=== PATIENT | male | born 1975 | race Caucasian/White ===

== ENCOUNTER 2018-04-08 06:46 | Observation (INO) | payer OTHER ==
[~2018-04-08] VITALS: Ht 175.3 cm; Wt 69.0 kg
[2018-04-08] MEDS ORDERED: TRAZ100 PO (06:53)
[2018-04-08] MEDS ORDERED: BUPR100 (06:54)
[2018-04-08] MEDS ORDERED: MIRT30 PO (06:54)
[2018-04-08 08:01] LABS: BASOPHILS ABSOLUTE AUTO 0.07 K/mm3 (0.00-0.23); BASOPHILS PERCENT AUTO 1 % (0-2); EOSINOPHILS ABSOLUTE AUTO 0.21 K/mm3 (0.00-0.68); EOSINOPHILS PERCENT AUTO 2 % (0-6); Hematocrit 43.4 % (37.0-53.0); Hemoglobin 14.2 g/dL (13.5-17.5); IMMATURE GRAN ABSOLUTE AUTO 0.02 K/mm3 (0.00-0.10); IMMATURE GRAN PERCENT AUTO 0 % (0-1); LYMPHOCYTES ABSOLUTE AUTO 1.35 K/mm3 (0.84-5.20); LYMPHOCYTES PERCENT AUTO 14 % (21-46); MONOCYTES ABSOLUTE AUTO 0.61 K/mm3 (0.16-1.47); MONOCYTES PERCENT AUTO 6 % (4-13); Mean Corpuscular HGB 29.3 pg (26.0-34.0); Mean Corpuscular HGB Conc 32.7 g/dL (31.5-36.5); Mean Corpuscular Volume 90 fL (80-100); Mean Platelet Volume 10.2 fL (9.1-12.4); NEUTROPHILS ABSOLUTE AUTO 7.52 K/mm3 (1.96-9.15); NEUTROPHILS PERCENT AUTO 77 % (41-73); Platelet Count 280 K/mm3 (150-400); RDW Coefficient Variation 12.9 % (11.7-14.2); RDW Standard Deviation 42.5 fL (35.1-46.3); Red Blood Cell Count 4.84 M/mm3 (4.30-5.90); White Blood Cell Count 9.78 K/mm3 (4.00-11.30)
[2018-04-08 08:22] LABS: Alanine Aminotransfer (ALT/SGP 23 U/L (12-78); Albumin, Blood 3.9 g/dL (3.4-5.0); Albumin/Globulin Ratio 1.1 (0.8-1.8); Alk Phos 132 U/L (50-136); Anion Gap 11 mmol/L (6-16); Aspartate Aminotrans (AST/SGOT 21 U/L (12-37); Bilirubin, Total 0.3 mg/dL (0.1-1.0); Blood Urea Nitrogen 17 mg/dL (8-24); Bun/Creatinine Ratio 18.5 (12.0-20.0); CO2, Blood 25 mmol/L (21-32); Calcium, Blood 8.4 mg/dL (8.5-10.1); Chloride, Blood 108 mmol/L (98-108); Creatinine, Blood 0.92 mg/dL (0.60-1.20); Ethanol (Alcohol), Blood, Med <3 mg/dL; Globulin, Blood 3.4 g/dL (2.2-4.0); Glomerular Filtration Rate >60 (60-); Glucose, Blood 82 mg/dL (70-99); Potassium, Blood 3.8 mmol/L (3.5-5.5); Salicylate <1.7 mg/dL (2.8-20.0); Sodium, Blood 144 mmol/L (136-145); Total Protein, Blood 7.3 g/dL (6.4-8.2)
[2018-04-08 08:26] LABS: Thyroid Stimulating Hormone 0.717 uIU/mL (0.360-4.800)
[2018-04-08 08:28] LABS: Acetaminophen, Random <2.0 ug/mL (10.0-30.0)
[2018-04-08 09:19] LABS: Source, Urine Clean Catch
[2018-04-08 09:23] LABS: Bilirubin, Urine Neg (Neg); Blood, Urine 1+ (Neg); Glucose Qualitative, Urine Neg (Neg); Ketones, Urine 1+ (Neg); Leukocyte Esterase, Urine Neg (Neg); Nitrite, Urine Neg (Neg); Protein, Urine Neg (Neg); Specific Gravity, Urine 1.025 (1.003-1.022); Urobilinogen, Urine NORM (Normal)
[2018-04-08 09:48] LABS: Appearance, Urine Clear (Clear); Color, Urine Yellow (P-Yellow); U Amphetamine Screen DETECTED; U Barbituate Screen Not Detected; U Benzodiazapine Screen Not Detected; U Buprenorphine Screen Not Detected; U Cannabinoids Screen Not Detected; U Cocaine Screen Not Detected; U Methadone Screen Not Detected; U Methamphetamine Screen Not Detected; U Opiates Screen Not Detected; U Oxycodone Screen Not Detected; U Phencyclidine Screen Not Detected; U Propoxyphene Screen Not Detected
[2018-04-08 09:53] LABS: Bacteria Rare /hpf; Squamous Epithelial Cells Not Seen /hpf (Few); White Blood Cells, Urine Rare /hpf (0-5)
[2018-04-08 09:54] LABS: Calcium Oxalate Crystals Mod /hpf
== END 2018-04-08 19:53 | disposition home or self-care (01) ==
LOC: ER 06:46 → EOR 06:47
PROVIDERS: Emergency Medicine
DX: F15.959 Other stimulant use, unspecified with stimulant-induced psychotic disorder, unspecified (principal); Z87.891 Personal history of nicotine dependence; Z79.899 Other long term (current) drug therapy
CPT/HCPCS: 36415; 80053; 81001; 84443; 85025; 99285; G0378; G0480

== ENCOUNTER → 2021-01-11 | Outpatient (CLI) | payer OTHER ==
[~2021-01-11] MED LIST: ALBU90OI INH; BUPR100; BUPR150ER PO; MIRT30 PO; TRAZ100 PO
== END | disposition home or self-care (01) ==
LOC: LAB 16:30 → LAB SHORT 16:30
DX: L08.9 Local infection of the skin and subcutaneous tissue, unspecified (principal)
CPT/HCPCS: 87081

== ENCOUNTER 2021-01-13 03:51 | Day surgery (SDC) | payer OTHER | END 2021-01-13 22:51 | disposition home or self-care (01) | LOC: WOUND 03:51 | DX: S81.001D Unspecified open wound, right knee, subsequent encounter (principal); X58.XXXD Exposure to other specified factors, subsequent encounter; M25.561 Pain in right knee | CPT/HCPCS: A9270; G0463 ==

== ENCOUNTER 2021-01-20 03:19 | Day surgery (SDC) | payer OTHER | END 2021-01-20 23:25 | disposition home or self-care (01) | LOC: WOUND 03:19 | DX: S81.001D Unspecified open wound, right knee, subsequent encounter (principal); S81.831D Puncture wound without foreign body, right lower leg, subsequent encounter; X58.XXXD Exposure to other specified factors, subsequent encounter; M25.561 Pain in right knee | CPT/HCPCS: A9270 ==

== ENCOUNTER 2021-01-22 01:00 | Day surgery (SDC) | payer OTHER | END 2021-01-22 23:09 | disposition home or self-care (01) | LOC: WOUND 01:00 | DX: S81.831D Puncture wound without foreign body, right lower leg, subsequent encounter (principal); S81.001D Unspecified open wound, right knee, subsequent encounter; X58.XXXD Exposure to other specified factors, subsequent encounter; M25.561 Pain in right knee | CPT/HCPCS: A9270 ==

== ENCOUNTER 2021-01-27 04:33 | Day surgery (SDC) | payer OTHER | END 2021-01-27 22:56 | disposition home or self-care (01) | LOC: WOUND 04:33 | DX: S71.131A Puncture wound without foreign body, right thigh, initial encounter (principal); M25.562 Pain in left knee; X58.XXXA Exposure to other specified factors, initial encounter | CPT/HCPCS: A9270 ==

== ENCOUNTER 2021-01-29 04:37 | Day surgery (SDC) | payer OTHER | END 2021-01-29 22:42 | disposition home or self-care (01) | LOC: WOUND 04:37 | DX: S81.001D Unspecified open wound, right knee, subsequent encounter (principal); S81.831D Puncture wound without foreign body, right lower leg, subsequent encounter; X58.XXXD Exposure to other specified factors, subsequent encounter; M25.561 Pain in right knee ==

== ENCOUNTER 2021-02-01 08:00 | Day surgery (SDC) | payer OTHER | END 2021-02-01 23:59 | disposition home or self-care (01) | LOC: WOUND 08:00 | DX: S81.001D Unspecified open wound, right knee, subsequent encounter (principal); S81.831D Puncture wound without foreign body, right lower leg, subsequent encounter; X58.XXXD Exposure to other specified factors, subsequent encounter; M25.561 Pain in right knee ==

== ENCOUNTER 2021-02-03 02:17 | Day surgery (SDC) | payer OTHER | END 2021-02-03 23:50 | disposition home or self-care (01) | LOC: WOUND 02:17 | DX: S81.001D Unspecified open wound, right knee, subsequent encounter (principal); S81.831D Puncture wound without foreign body, right lower leg, subsequent encounter; X58.XXXD Exposure to other specified factors, subsequent encounter; M25.561 Pain in right knee | CPT/HCPCS: A9270; G0463 ==

== ENCOUNTER 2021-02-09 10:54 | Day surgery (SDC) | payer OTHER | END 2021-02-09 22:48 | disposition home or self-care (01) | LOC: WOUND 10:54 | DX: S71.101D Unspecified open wound, right thigh, subsequent encounter (principal); W22.8XXD Striking against or struck by other objects, subsequent encounter ==

== ENCOUNTER 2021-02-25 02:33 | Day surgery (SDC) | payer OTHER | END 2021-02-25 23:12 | disposition home or self-care (01) | LOC: WOUND 02:33 | DX: S81.001A Unspecified open wound, right knee, initial encounter (principal); S81.831A Puncture wound without foreign body, right lower leg, initial encounter; X58.XXXA Exposure to other specified factors, initial encounter | CPT/HCPCS: A9270 ==

== ENCOUNTER 2021-03-11 00:27 | Day surgery (SDC) | payer OTHER | END 2021-03-11 22:47 | disposition home or self-care (01) | LOC: WOUND 00:27 | DX: S81.001D Unspecified open wound, right knee, subsequent encounter (principal); S81.831D Puncture wound without foreign body, right lower leg, subsequent encounter; X58.XXXD Exposure to other specified factors, subsequent encounter | CPT/HCPCS: A9270; G0463 ==

== ENCOUNTER 2021-03-22 02:53 | Day surgery (SDC) | payer OTHER | END 2021-03-22 23:23 | disposition home or self-care (01) | LOC: WOUND 02:53 | DX: S81.001D Unspecified open wound, right knee, subsequent encounter (principal); S81.831D Puncture wound without foreign body, right lower leg, subsequent encounter; X58.XXXD Exposure to other specified factors, subsequent encounter | CPT/HCPCS: G0463 ==

== ENCOUNTER → 2021-06-15 | Outpatient (CLI) | payer OTHER ==
[2021-06-17 02:07] LABS: CHLAMYDIA TRACHOMATIS, NAA Negative (Negative)
== END | disposition home or self-care (01) ==
LOC: LAB EV 07:32 → LAB SHORT 07:32 → LAB 07:32 → LAB FUT 06-09 09:55
PROVIDERS: Family Medicine
DX: Z11.3 Encounter for screening for infections with a predominantly sexual mode of transmission (principal)
CPT/HCPCS: 87491; 87591

== ENCOUNTER → 2022-08-12 | Outpatient (CLI) | payer OTHER | LOC: LAB 17:28 → LAB SHORT 17:28 | DX: L98.9 Disorder of the skin and subcutaneous tissue, unspecified (principal); R23.9 Unspecified skin changes | CPT/HCPCS: 87070; 87077; 87147; 87186; 87205 ==

== ENCOUNTER → 2025-06-30 | Outpatient (CLI) | payer OTHER ==
[~2025-06-30] MED LIST changes: +BACTRIM DS TAB1 EAC1 PO
[2025-06-30 09:02] LABS: BASOPHILS ABSOLUTE AUTO 0.04 K/mm3 (0.00-0.23); BASOPHILS PERCENT AUTO 1 % (0-2); EOSINOPHILS ABSOLUTE AUTO 0.02 K/mm3 (0.00-0.68); EOSINOPHILS PERCENT AUTO 0 % (0-6); Hematocrit 47.8 % (37.0-53.0); Hemoglobin 15.5 g/dL (13.5-17.5); IMMATURE GRAN ABSOLUTE AUTO 0.02 K/mm3 (0.00-0.10); IMMATURE GRAN PERCENT AUTO 0 % (0-1); LYMPHOCYTES ABSOLUTE AUTO 1.38 K/mm3 (0.84-5.20); LYMPHOCYTES PERCENT AUTO 24 % (21-46); MONOCYTES ABSOLUTE AUTO 0.45 K/mm3 (0.16-1.47); MONOCYTES PERCENT AUTO 8 % (4-13); Mean Corpuscular HGB Conc 32.4 g/dL (31.5-36.5); Mean Corpuscular Volume 91 fL (80-100); NEUTROPHILS ABSOLUTE AUTO 3.80 K/mm3 (1.96-9.15); NEUTROPHILS PERCENT AUTO 66 % (41-73); NRBC ABSOLUTE 0.00 K/mm3 (0.00-0.02); NRBC Auto 0.0 /100 WBC (0.0-0.2); Platelet Count 277 K/mm3 (150-400); RDW Coefficient Variation 13.8 % (11.7-14.2); RDW Standard Deviation 43.7 fL (35.1-46.3)
[2025-06-30 09:21] LABS: Alanine Aminotransfer (ALT/SGP 31.0 U/L (12-78); Albumin, Blood 4.1 g/dL (3.4-5.0); Albumin/Globulin Ratio 1.1 (0.8-1.8); Anion Gap 12.0 mmol/L (3-11); Aspartate Aminotrans (AST/SGOT 17.0 U/L (12-37); Bilirubin, Total 0.3 mg/dL (0.1-1.0); Blood Urea Nitrogen 10.0 mg/dL (8-24); CO2, Blood 31.0 mmol/L (21-32); Calcium, Blood 9.2 mg/dL (8.5-10.1); Chloride, Blood 104.0 mmol/L (98-108); Creatinine, Blood 0.9 mg/dL (0.60-1.20); Globulin, Blood 3.6 g/dL (2.2-4.0); Glucose, Blood 114.0 mg/dL (70-99); Potassium, Blood 4.5 mmol/L (3.5-5.5); Sodium, Blood 142.0 mmol/L (136-145); Thyroid Stimulating Hormone 0.206 uIU/mL (0.360-4.800); Total Protein, Blood 7.7 g/dL (6.4-8.2)
== END ==
LOC: LAB SHORT 08:58 → LAB 08:58
PROVIDERS: Physician Assistant Medical
DX: R21 Rash and other nonspecific skin eruption (principal); R53.83 Other fatigue
CPT/HCPCS: 80053; 84439; 84443; 84481; 85025

== ENCOUNTER 2025-07-01 15:53 | Emergency (ER) | payer OTHER ==
[~2025-07-01] VITALS: Ht 172.7 cm; Wt 68.0 kg
[~2025-07-01 15:53] MED LIST changes: -BACTRIM DS TAB1 EAC1 PO
[2025-07-01 16:51] LABS: BASOPHILS ABSOLUTE AUTO 0.05 K/mm3 (0.00-0.23); BASOPHILS PERCENT AUTO 1 % (0-2); EOSINOPHILS ABSOLUTE AUTO 0.10 K/mm3 (0.00-0.68); EOSINOPHILS PERCENT AUTO 1 % (0-6); Hematocrit 47.9 % (37.0-53.0); Hemoglobin 15.6 g/dL (13.5-17.5); IMMATURE GRAN ABSOLUTE AUTO 0.02 K/mm3 (0.00-0.10); IMMATURE GRAN PERCENT AUTO 0 % (0-1); LYMPHOCYTES ABSOLUTE AUTO 1.97 K/mm3 (0.84-5.20); LYMPHOCYTES PERCENT AUTO 23 % (21-46); MONOCYTES ABSOLUTE AUTO 0.81 K/mm3 (0.16-1.47); MONOCYTES PERCENT AUTO 9 % (4-13); Mean Corpuscular HGB Conc 32.6 g/dL (31.5-36.5); Mean Corpuscular Volume 90 fL (80-100); NEUTROPHILS ABSOLUTE AUTO 5.75 K/mm3 (1.96-9.15); NEUTROPHILS PERCENT AUTO 66 % (41-73); NRBC ABSOLUTE 0.00 K/mm3 (0.00-0.02); NRBC Auto 0.0 /100 WBC (0.0-0.2); Platelet Count 259 K/mm3 (150-400); RDW Coefficient Variation 13.5 % (11.7-14.2); RDW Standard Deviation 42.5 fL (35.1-46.3)
[2025-07-01 18:06] LABS: Alanine Aminotransfer (ALT/SGP 31.0 U/L (12-78); Albumin, Blood 4.1 g/dL (3.4-5.0); Albumin/Globulin Ratio 1.2 (0.8-1.8); Anion Gap 9.0 mmol/L (3-11); Aspartate Aminotrans (AST/SGOT 19.0 U/L (12-37); Bilirubin, Total 0.5 mg/dL (0.1-1.0); Blood Urea Nitrogen 17.0 mg/dL (8-24); CO2, Blood 26.0 mmol/L (21-32); Calcium, Blood 8.7 mg/dL (8.5-10.1); Chloride, Blood 105.0 mmol/L (98-108); Creatinine, Blood 0.9 mg/dL (0.60-1.20); Globulin, Blood 3.5 g/dL (2.2-4.0); Glucose, Blood 149.0 mg/dL (70-99); Potassium, Blood 3.8 mmol/L (3.5-5.5); Sodium, Blood 136.0 mmol/L (136-145); Total Protein, Blood 7.6 g/dL (6.4-8.2)
[2025-07-01] MEDS ORDERED: Trimethoprim/Sulfamethoxazole DS Tab PO ONE (19:10)
[2025-07-01] MEDS ORDERED: BACTRIM DS TAB1 EAC1 PO (19:16)
[2025-07-01 19:40] VITALS: BP 158/98
== END 2025-07-01 19:40 | disposition home or self-care (01) ==
LOC: ER 15:53
PROVIDERS: Student in an Organized Health Care Education/Training Program
DX: I10 Essential (primary) hypertension (principal); R21 Rash and other nonspecific skin eruption; J45.909 Unspecified asthma, uncomplicated; Z87.891 Personal history of nicotine dependence; Z79.899 Other long term (current) drug therapy
CPT/HCPCS: 80053; 85025; 99283; A9270

== ENCOUNTER → 2025-07-02 | Outpatient (CLI) | payer OTHER ==
[~2025-07-02] MED LIST changes: +BACTRIM DS TAB1 EAC1 PO
[2025-07-03 16:46] LABS: U Amphetamine Screen Not Detected; U Barbiturate Screen Not Detected; U Benzodiazapine Screen Not Detected; U Cocaine Screen Not Detected; U Methadone Screen Not Detected; U Methamphetamine Screen Not Detected; U Opiates Screen Not Detected; U Phencyclidine Screen Not Detected
[2025-07-03 16:47] LABS: U Buprenorphine Screen Not Detected; U Cannabinoids Screen DETECTED; U Oxycodone Screen Not Detected
== END ==
LOC: LAB 15:00 → LAB SHORT 15:00
PROVIDERS: Nurse Practitioner Family
DX: Z51.81 Encounter for therapeutic drug level monitoring (principal); Z79.891 Long term (current) use of opiate analgesic